=== PATIENT | female | born 1985 | race Caucasian/White ===

== ENCOUNTER → 2017-05-21 | Outpatient (CLI) | payer OTHER ==
[~2017-05-21] MED LIST: FLUT0.0529; MULT-506 PO
--- NOTE | 2017-05-21 15:23 | MAMMOGRAPHY REPORT ---
BILATERAL DIGITAL DIAGNOSTIC MAMMOGRAM TOMOSYNTHESIS WITH CAD AND TARGETED LEFT ULTRASOUND: 05/21/2017 CLINICAL HISTORY: The patient reports a palpable left breast lump for approximately 2 weeks. TECHNIQUE: Breast tomosynthesis in addition to standard 2D mammography was performed. Current study was also evaluated with a Computer Aided Detection (CAD) system. Bilateral CC and MLO 2D and tomosyn thesis images and spot magnification bilateral CC and ML views were obtained. COMPARISON: No prior exams were available for comparison. BREAST COMPOSITION: The tissue of both breasts is extremely dense, which lowers the sensitivity of m ammography. FINDINGS: A triangle marker bautista the site of the palpable lump in the left 12:00 breast. A partiall y circumscribed and partially obscured 9 mm mass is seen at the site of the palpable lump. Additiona lly, another lobulated partially circumscribed and partially obscured mass measuring approximately 9 mm is seen within the left medial breast at approximately 10:00. Spot magnification views of the lef t breast demonstrate loosely grouped calcifications within the left upper inner quadrant, some of whi ch demonstrate layering on the spot magnification lateral view, as well as on MLO tomosynthesis image s (slice 22 and 25/50). Given the evidence of layering, the calcifications are probably benign and l ikely represent milk of calcium. Another small 5 mm group of calcifications is also seen within the right upper inner quadrant which appears similar to the left breast calcifications and are also proba kaiden benign and likely represent milk of calcium/fibrocystic changes. The remainder of both breasts d emonstrate no suspicious masses, calcifications, or areas of architectural distortion. Targeted ultrasound was performed of the area of the palpable lump pointed out by the patient, in the left 12:00 periareolar breast. At the site of the palpable lump there is a circumscribed anechoic 1 .4 x 1.0 x 1.7 cm mass with a thin internal septation, consistent with a benign cyst. Adjacent to th is is a smaller anechoic mass with multiple thin internal septations measuring 1.2 x 1.0 x 0.6 cm, wh ich is probably benign and likely represents a cluster of cysts. Ultrasound was also performed of th e left breast in the region of the other partially circumscribed mass seen on the mammogram at approx imately 10:00. In the left breast at 10:00 periareolar region, there are other ill-defined anechoic cystic masses which contain internal septations and likely also represent cyst clusters/fibrocystic c hanges, one measuring approximately 2 x 0.5 x 1.4 cm and another measuring 1.6 cm. IMPRESSION: ACR-BI-RADS CATEGORY 3: PROBABLY BENIGN, TARGETED ULTRASOUND ACR-BI-RADS CATEGORY 3: PRO BABLY BENIGN 1. Two adjacent cysts at the site of the palpable lump in the left 12:00 breast, one of which is rogelio rly benign and the other of which is probably benign and likely represents a cyst cluster. Other pro bable cyst clusters/fibrocystic changes are also seen within the left 10:00 breast on ultrasound. 2. Calcifications within the left upper inner quadrant and right upper inner quadrant are probably b enign and likely represent milk of calcium/fibrocystic changes. 3. Recommend bilateral diagnostic tomosynthesis mammograms and repeat ultrasound of the left breast in 6 months to reevaluate bilateral calcifications and left breast masses. The patient has been verbally notified of the results. Approximately 10% of breast cancers are not detected with mammography. A negative mammographic report should not delay biopsy if a clinically suggestive mass is present. Mary Mancini M.D. ah/:05/21/2017 14:58:51 Collections Representative: Ce NEELY)(Silvia), [facility] letter sent: Follow Up Recommended 3 BI-RADS Code: ACR-BI-RADS Category 3: Probably Benign Ultrasound BI-RADS: ACR-BI-RADS Category 3: Pr obably Benign
== END | disposition home or self-care (01) ==
LOC: C.MAMM 13:25
PROVIDERS: ATTEND Nurse Practitioner Family
DX: N63.20 Unspecified lump in the left breast, unspecified quadrant (principal); N60.02 Solitary cyst of left breast; R92.1 Mammographic calcification found on diagnostic imaging of breast